=== PATIENT | female | born 1950 | race Caucasian/White ===

== ENCOUNTER 2017-06-18 08:52 | Day surgery (SDC) | payer MEDICARE, BC ==
[~2017-06-18] VITALS: Ht 158.8 cm; Wt 57.7 kg
[2017-06-18 09:18] VITALS: BP 157/98; PULSE 97; RESP 18; TEMP 98.1; O2SAT 99
[2017-06-18] MEDS ORDERED: ALPR.5 PO (09:40)
[2017-06-18] MEDS ORDERED: SODIUM CHLOR 0.9% 1000 ML IV SCH (10:00)
[2017-06-18] MEDS ORDERED: LIDOCAINE HCL 1% 20 ML VIAL ONE (10:40)
[2017-06-18] MEDS ORDERED: MIDAZOLAM HCL 2 MG/2 ML VIAL ONE (11:20)
[2017-06-18] MEDS ORDERED: diphenhydrAMINE HCL 50 MG/ML VIAL ONE (11:42)
--- NOTE | 2017-06-18 12:26 | PD.RAD ---
Post CT Procedure Prog Note Pre Procedure Diagnosis: (1) Mass of sternum Post Procedure Diagnosis: (1) Mass of sternum Procedure Date: Jun 18, 2017 Supervising Radiologist: Ketan Saldivar JR Anesthesia: Conscious Sedation Plan of Activity Patient to Unit: [facility] Patient Condition: Good Additional Comments: Successful bone biopsy of a sternal lesion. One core sample taken. No hemorrhage following biopsy. See PACS Report for procedural detail/treatment Jr. Yariel,Ketan Etienne MD Jun 18, 2017 12:26
[2017-06-18 12:40] VITALS: BP 152/79; PULSE 78; RESP 18; TEMP 98; O2SAT 97
[2017-06-18 12:55] VITALS: BP 142/79; PULSE 78; RESP 16; O2SAT 97
[2017-06-18 13:25] VITALS: BP 133/76; PULSE 75; RESP 16; O2SAT 96
[2017-06-18 13:55] VITALS: BP 109/67; PULSE 90; RESP 18; O2SAT 97
--- NOTE | 2017-06-18 13:55 | RADRPT ---
EXAM DATE/TIME: 06/18/2017 11:24 [place] COMPARISON: No previous studies available for comparison. INDICATIONS : Sternal lytic lesion SEDATION TIME: 55 minutes BIOPSY SITE: sternum MEDICATION(S): 1.) 4 mg midazolam (Versed) IV 2.) 300 mcg fentanyl (Sublimaze) IV 3.) 25 mg IV benadryl DEVICE(S): 1.) 13 gauge AVAMax MEDICAL HISTORY : None. SURGICAL HISTORY : None. ENCOUNTER: Initial ACUITY: 1 day PAIN SCORE: 5/10 LOCATION: chest A total of one core specimen(s) was obtained and sent to the laboratory for pathologic evaluation. PROCEDURE: 1. CT guided bone deep biopsy. 2. Conscious sedation with continuous EKG and oximetry monitoring. 3. EKG and oximetry remained stable throughout the procedure. Prior to the procedure informed consent was obtained. Any appropriate prior imaging studies were rev iewed. Using automated exposure control and adjustment of the mA and/or kV according to patient size, radiat ion dose was kept as low as reasonably achievable to obtain optimal diagnostic quality images. DICOM format image data is available electronically for review and comparison. The site was prepped in a sterile fashion. Full sterile technique was used, including cap, mask, kendell rile gloves and gown and a large sterile sheet. Hand hygiene and 2% chlorhexidine and/or betadine/al cohol prep was utilized per protocol for cutaneous antisepsis. The skin and subcutaneous tissues wer e infiltrated with local anesthetic solution. With CT guidance the previously identified target was localized. Biopsy was performed using the presc ribed needle as above. Adequate hemostasis was obtained with compression at the puncture site. Follow-up CT scan reveals no hemorrhage. The patient tolerated the procedure well and there were no complications. The patient was returned to the Radiology Outpatient Unit in stable condition. CONCLUSION: The patient was very difficult to sedate. In the future if further intervention is needed I would sug gest consulting anesthesia. A core biopsy of the lytic lesion involving the sternum was performed. Ketan Saldivar Jr., MD on June 18, 2017 at 13:52 Board Certified Radiologist. This report was verified electronically.
[2017-06-18 14:25] VITALS: BP 114/76; PULSE 88; RESP 16; O2SAT 98
[2017-06-18] MEDS ORDERED: oxyCODONE/ACETAMINOPHEN 5 MG/325 MG TAB PO PRN (15:00)
== END 2017-06-18 15:35 | disposition home or self-care (01) ==
LOC: HRAD 08:52 → HRIP 08:59 → HRAD 15:35
DX: R93.7 Abnormal findings on diagnostic imaging of other parts of musculoskeletal system (principal)
CPT/HCPCS: 20225; 77012; 88307; 88311; 88342; 99152; 99153; J1200; J2250; J3010; 88305; 88341